=== PATIENT | male | born 1960 | race Caucasian/White ===

== ENCOUNTER → 2023-12-31 11:21 | Outpatient (REF) | payer BC, SELFPAY | LOC: RCS 11:21 | PROVIDERS: ATTENDING PHYSICIAN Orthopaedic Surgery | DX: Z01.818 Encounter for other preprocedural examination (principal) | CPT/HCPCS: 93005 ==

== ENCOUNTER 2024-02-06 06:31 | Day surgery (SDC) | payer BC, SELFPAY ==
[2024-02-06] VITALS (9 sets, daily range): BP systolic 120–175; BP diastolic 85–102; BMI 28.7
[2024-02-06 07:33] LABS: Glucose - Point of Care 163 mg/dl (70-99)
[2024-02-06] MEDS: TYLENOL 1000 MG PO (07:36)
[2024-02-06] MEDS: CELEBREX 200 MG PO (07:37)
[2024-02-06] MEDS: NORMOSOL-R 1000 IV (07:38)
[2024-02-06 11:05] LABS: Glucose - Point of Care 185 mg/dl (70-99)
== END 2024-02-06 12:55 | disposition home or self-care (01) ==
LOC: SDS 06:31
PROVIDERS: ATTENDING PHYSICIAN Orthopaedic Surgery
DX: M75.121 Complete rotator cuff tear or rupture of right shoulder, not specified as traumatic (principal)
CPT/HCPCS: 29827; 29828; 82962